=== PATIENT | male | born 1960 | race Caucasian/White ===

== ENCOUNTER 2022-03-07 14:55 | Emergency (ER) | payer OTHER ==
[2022-03-07] MEDS ORDERED: PAXLOVID PO (17:14)
[2022-03-07 17:23] VITALS: BP 120/78
== END 2022-03-07 17:40 | disposition home or self-care (01) | DRG 179 ==
LOC: ED 14:55
DX: U07.1 COVID-19 (principal); J02.9 Acute pharyngitis, unspecified; I10 Essential (primary) hypertension; Z86.718 Personal history of other venous thrombosis and embolism